=== PATIENT | female | born 2000 | race Hispanic/Latino ===

== ENCOUNTER 2023-01-14 14:03 | Emergency (ER) | payer MEDICAID ==
[~2023-01-14] VITALS: Ht 154.9 cm; Wt 54.4 kg
[2023-01-14 14:43] LABS: BASOPHILS # (AUTO) 0.08 K/uL (0.00-0.20); BASOPHILS % (AUTO) 0.6 % (0.0-5.0); EOSINOPHILS # (AUTO) 0.21 K/uL (0.00-0.70); EOSINOPHILS % (AUTO) 1.5 % (0.0-8.0); HEMATOCRIT 40.1 % (36-48); IMMATURE GRANULOCYTE ABSOLUTE 0.08 K/uL (0-1); LYMPHOCYTES # (AUTO) 2.7 K/uL (1.0-4.8); LYMPHOCYTES % (AUTO) 19.9 % (21.0-51.0); MEAN CORPUSCULAR HEMOGLOBIN 29.7 pg (27.0-33.0); MEAN CORPUSCULAR HGB CONC 32.9 g/dL (32.0-36.0); MEAN CORPUSCULAR VOLUME 90.1 fL (80-100); MONOCYTES # (AUTO) 1.1 K/uL (0.1-1.0); MONOCYTES % (AUTO) 7.8 % (3.0-13.0); NEUTROPHILS # (AUTO) 9.6 K/uL (1.8-7.7); NEUTROPHILS % (AUTO) 69.6 % (40.0-77.0); PLATELET COUNT (AUTO) 466 K/uL (130-400); RED BLOOD CELL COUNT(AUTO) 4.45 MIL/uL (4.00-5.50); RED CELL DISTRIBUTION WIDTH 11.9 % (11.0-15.5); WHITE BLOOD COUNT (AUTO) 13.8 K/uL (4.8-10.8)
[2023-01-14 14:55] LABS: CREATININE 0.8 mg/dL (0.5-1.5); POTASSIUM 3.2 mmol/L (3.5-5.1)
[2023-01-14 15:00] LABS: ALBUMIN 3.5 g/dL (3.5-5.0); BILIRUBIN,TOTAL 0.3 mg/dL (0.2-1.0); TOTAL PROTEIN, SERUM 7.3 g/dL (6.0-8.3)
[2023-01-14] MEDS ORDERED: 0.9%NACL 1000ML 1,000 ML IV ONE (15:00)
[2023-01-14] MEDS ORDERED: ONDANSETRON 4MG INJ IVP ONE (15:00)
[2023-01-14] MEDS ORDERED: MORPHINE 4 MG SYG IVP ONE (15:00)
[2023-01-14] MEDS ORDERED: MORPHINE 2 MG SYG IVP ONE (17:30)
[2023-01-14 19:57] VITALS: BP 119/62; PULSE 68; RESP 16; O2SAT 98
== END 2023-01-14 19:58 | disposition home or self-care (01) ==
LOC: EDH 14:03
DX: O03.9 Complete or unspecified spontaneous abortion without complication (principal)
CPT/HCPCS: 99285; 96374; 96361; 76801; 96375; 80053; 84703; 84702; 85025; 86850; 86900; 86901; 36415; 96376; J2270 ×2; J7030 ×2; J2405

== ENCOUNTER 2023-07-29 19:41 | Inpatient (IN) | payer MEDICAID, OTHER ==
[~2023-07-29] VITALS: Ht 154.9 cm; Wt 59.9 kg
[2023-07-29] MEDS ORDERED: IOHEXOL-350 75 ML VIAL IV ONE (23:36)
[2023-07-29 23:49] LABS: BASOPHILS # (AUTO) 0.06 K/uL (0.00-0.20); BASOPHILS % (AUTO) 0.3 % (0.0-5.0); HEMATOCRIT 40.3 % (36-48); IMMATURE GRANULOCYTE ABSOLUTE 0.06 K/uL (0-1); LYMPHOCYTES % (AUTO) 4.9 % (21.0-51.0); MEAN CORPUSCULAR HEMOGLOBIN 29.6 pg (27.0-33.0); MEAN CORPUSCULAR HGB CONC 33.7 g/dL (32.0-36.0); MEAN CORPUSCULAR VOLUME 87.8 fL (80-100); MONOCYTES # (AUTO) 1.3 K/uL (0.1-1.0); MONOCYTES % (AUTO) 6.5 % (3.0-13.0); NEUTROPHILS # (AUTO) 17.6 K/uL (1.8-7.7); PLATELET COUNT (AUTO) 387 K/uL (130-400); RED BLOOD CELL COUNT(AUTO) 4.59 MIL/uL (4.00-5.50); RED CELL DISTRIBUTION WIDTH 12.4 % (11.0-15.5)
[2023-07-29 23:58] LABS: CREATININE 0.7 mg/dL (0.5-1.5)
[2023-07-30] VITALS (28 sets, daily range): BP systolic 95–114; BP diastolic 51–72; PULSE 75–103; RESP 13–18; TEMP 99.1; O2SAT 97–100
[2023-07-30 00:02] LABS: ALBUMIN 4.2 g/dL (3.5-5.0); BILIRUBIN,TOTAL 0.6 mg/dL (0.2-1.0); TOTAL PROTEIN, SERUM 8.4 g/dL (6.0-8.3)
[2023-07-30 00:17] LABS: WBC MORPHOLOGY CONSISTENT W/DIFF
[2023-07-30] MEDS: 0.9%NACL 1000ML 1,000 ML IV ONE (00:19)
[2023-07-30] MEDS: ONDANSETRON 4MG INJ IVP ONE (00:20)
[2023-07-30 00:21] LABS: HCG,QUALITATIVE URINE NEGATIVE (NEGATIVE)
[2023-07-30] MEDS: PANTOPRAZOLE 40 MG/VIAL IVP ONE (00:21)
[2023-07-30 00:22] LABS: APPEARANCE,URINE CLEAR (CLEAR); BILIRUBIN,URINE NEGATIVE (NEGATIVE); COLOR,URINE LIGHT-YELLOW (YELLOW); GLUCOSE, URINE (UA) NEGATIVE (NEGATIVE); KETONES,URINE >=80 mg/dL (NEGATIVE); LEUKOCYTE ESTERASE ,URINE NEGATIVE Leu/uL (NEGATIVE); NITRATE,URINE NEGATIVE (NEGATIVE); PH,URINE 5.5 (5.0-8.0); PROTEIN,URINE 10 mg/dL (NEGATIVE); UROBILINOGEN,URINE 0.2 mg/dL (0.2-1.0)
[2023-07-30] MEDS: KETOROLAC 15MG/ML VIAL (15MG/ML) IV ONE (00:22)
[2023-07-30 00:24] LABS: ADD UA MICROSCOPIC YES
[2023-07-30 00:25] LABS: MUCUS,URINE RARE LPF (None Seen); SQUAMOUS EPITHELIAL CELL,UR RARE /HPF (0-2)
[2023-07-30] MEDS ORDERED: IOHEXOL-350 75 ML VIAL IV ONE (00:29)
[2023-07-30] MEDS: ZOSYN 3.375GM +NS 50ML IV ONE (01:02)
[2023-07-30 01:29] LABS: SARS-CoV-2, RNA, NAAT NEGATIVE SARS CoV-2 (NEGATIVE)
[2023-07-30 01:32] LABS: INFLUENZA TYPE A Negative For Type A (NEGATIVE); INFLUENZA TYPE B Negative For Type B (NEGATIVE)
[2023-07-30] MEDS: MORPHINE 4 MG SYG IVP ONE (02:29)
[2023-07-30] MEDS: ACETAMINOPHEN 325 MG TAB PO ONE (02:45)
[2023-07-30] MEDS ORDERED: ONDANSETRON 4MG INJ IV PRN (03:00)
[2023-07-30] MEDS: 0.9%NACL 1000ML 1,000 ML IV SCH (03:00)
[2023-07-30] MEDS ORDERED: ZOSYN 3.375GM+NS 50ML 50 ML IV SCH (05:00)
[2023-07-30 05:15] LABS: BASOPHILS # (AUTO) 0.03 K/uL (0.00-0.20); BASOPHILS % (AUTO) 0.2 % (0.0-5.0); EOSINOPHILS # (AUTO) 0.03 K/uL (0.00-0.70); EOSINOPHILS % (AUTO) 0.2 % (0.0-8.0); HEMATOCRIT 34.8 % (36-48); IMMATURE GRANULOCYTE ABSOLUTE 0.07 K/uL (0-1); LYMPHOCYTES # (AUTO) 1.4 K/uL (1.0-4.8); LYMPHOCYTES % (AUTO) 9.8 % (21.0-51.0); MEAN CORPUSCULAR HEMOGLOBIN 29.8 pg (27.0-33.0); MEAN CORPUSCULAR HGB CONC 33.6 g/dL (32.0-36.0); MEAN CORPUSCULAR VOLUME 88.5 fL (80-100); MONOCYTES # (AUTO) 0.9 K/uL (0.1-1.0); MONOCYTES % (AUTO) 6.2 % (3.0-13.0); NEUTROPHILS # (AUTO) 11.8 K/uL (1.8-7.7); NEUTROPHILS % (AUTO) 83.1 % (40.0-77.0); PLATELET COUNT (AUTO) 318 K/uL (130-400); RED BLOOD CELL COUNT(AUTO) 3.93 MIL/uL (4.00-5.50); RED CELL DISTRIBUTION WIDTH 12.3 % (11.0-15.5); WHITE BLOOD COUNT (AUTO) 14.2 K/uL (4.8-10.8)
[2023-07-30 05:39] LABS: INR 0.99 (0.85-1.15); PROTHROMBIN TIME 11.5 SEC (9.6-11.6)
[2023-07-30 05:40] LABS: PARTIAL THROMBOPLASTIN TIME 29.1 SEC (26.3-35.5)
[2023-07-30 05:51] LABS: ALBUMIN 3.1 g/dL (3.5-5.0); BILIRUBIN,TOTAL 0.9 mg/dL (0.2-1.0); CREATININE 0.6 mg/dL (0.5-1.5); MAGNESIUM 1.5 mg/dL (1.80-2.40); POTASSIUM 3.7 mmol/L (3.5-5.1); TOTAL PROTEIN, SERUM 5.9 g/dL (6.0-8.3)
[2023-07-30] MEDS: MAGNESIUM 2GM PREMIX 50ML 50 ML IV PRN (06:26)
[2023-07-30] MEDS ORDERED: POTASSIUM CHLORIDE 20MEQ/100ML 100 ML IV PRN (06:30)
[2023-07-30] MEDS: FAMOTIDINE 20MG VIAL IV SCH (08:53)
[2023-07-30] MEDS: ZOSYN 3.375GM+NS 50ML 50 ML IV SCH (08:53)
[2023-07-30] MEDS ORDERED: LIDOCAINE PF 100MG/5ML (2%) SYRINGE 5ML ONE (12:46)
[2023-07-30] MEDS ORDERED: LIDOCAINE HCL 4% LTA SOL 4 ML VIAL ONE (12:46)
[2023-07-30] MEDS ORDERED: ROCURONIUM BROMIDE 10MG/1ML 5ML VL ONE (12:49)
[2023-07-30] MEDS ORDERED: SUCCINYLCHOLINE CHLORIDE 20 MG/ML 10 ML VIAL ONE (12:49)
[2023-07-30] MEDS ORDERED: PROPOFOL 10 MG/ML 20ML VIAL IV ONE (12:49)
[2023-07-30] MEDS ORDERED: FENTANYL CITRATE PF 50 MCG/1 ML 2ML VIAL ONE (12:49)
[2023-07-30] MEDS ORDERED: MIDAZOLAM HCL 1 MG/ML 2ML VIAL ONE (12:51)
[2023-07-30] MEDS ORDERED: ONDANSETRON 4MG INJ ONE (13:39)
[2023-07-30] MEDS ORDERED: PHENYLEPHRINE HCL 10 MG/ML 1ML VIAL IV ONE (13:41)
[2023-07-30] MEDS ORDERED: 0.9%NACL 10ML VIAL ONE (13:41)
[2023-07-30] MEDS ORDERED: KETOROLAC 30MG VIAL (30MG/ML) ONE (14:05)
[2023-07-30] MEDS ORDERED: NEOSTIGMINE METHYLSULFATE 1MG/ML IV ONE (14:05)
[2023-07-30] MEDS ORDERED: GLYCOPYRROLATE 0.2 MG/ML 5 ML VIAL ONE (14:05)
[2023-07-30] MEDS: BUPIVACAINE/PF 0.5% 30ML VIAL ONE (14:10)
[2023-07-30] MEDS ORDERED: MORPHINE 2 MG SYG IVP PRN (16:00)
[2023-07-30] MEDS: KETOROLAC 15MG/ML VIAL (15MG/ML) IV PRN (21:31)
[2023-07-31] VITALS: BP 108/72; PULSE 87; RESP 16
[2023-07-31 03:56] VITALS: BP 108/72; PULSE 87; RESP 16
[2023-07-31 04:41] LABS: BASOPHILS # (AUTO) 0.04 K/uL (0.00-0.20); BASOPHILS % (AUTO) 0.3 % (0.0-5.0); EOSINOPHILS # (AUTO) 0.02 K/uL (0.00-0.70); EOSINOPHILS % (AUTO) 0.2 % (0.0-8.0); HEMATOCRIT 32.8 % (36-48); IMMATURE GRANULOCYTE ABSOLUTE 0.05 K/uL (0-1); LYMPHOCYTES # (AUTO) 1.4 K/uL (1.0-4.8); LYMPHOCYTES % (AUTO) 11.5 % (21.0-51.0); MEAN CORPUSCULAR HEMOGLOBIN 29.3 pg (27.0-33.0); MEAN CORPUSCULAR HGB CONC 32.3 g/dL (32.0-36.0); MEAN CORPUSCULAR VOLUME 90.6 fL (80-100); MONOCYTES # (AUTO) 0.9 K/uL (0.1-1.0); MONOCYTES % (AUTO) 7.6 % (3.0-13.0); NEUTROPHILS # (AUTO) 9.4 K/uL (1.8-7.7); PLATELET COUNT (AUTO) 307 K/uL (130-400); RED BLOOD CELL COUNT(AUTO) 3.62 MIL/uL (4.00-5.50); RED CELL DISTRIBUTION WIDTH 12.4 % (11.0-15.5); WHITE BLOOD COUNT (AUTO) 11.8 K/uL (4.8-10.8)
[2023-07-31 04:56] LABS: ALBUMIN 2.6 g/dL (3.5-5.0); BILIRUBIN,TOTAL 0.5 mg/dL (0.2-1.0); CREATININE 0.6 mg/dL (0.5-1.5); MAGNESIUM 1.8 mg/dL (1.80-2.40); POTASSIUM 3.9 mmol/L (3.5-5.1); TOTAL PROTEIN, SERUM 5.8 g/dL (6.0-8.3)
[2023-07-31 08:00] VITALS: BP 103/52; PULSE 85; RESP 16; O2SAT 99
[2023-07-31 12:00] VITALS: BP 98/51; PULSE 82; RESP 16
== END 2023-07-31 13:40 | disposition home or self-care (01) | DRG 397 ==
LOC: EDH 19:41 → EDHIP 19:42 → 4BH 07-30 04:19
PROVIDERS: ADMIT Hospitalist; ATTEND Hospitalist
PROC: 0DTJ4ZZ Resection of Appendix, Percutaneous Endoscopic Approach (ICD-10-PCS; principal; 2023-07-30 13:17)
DX: K35.80 Unspecified acute appendicitis (principal); E43 Unspecified severe protein-calorie malnutrition; Z20.822 Contact with and (suspected) exposure to COVID-19; E83.42 Hypomagnesemia; Z68.25 Body mass index [BMI] 25.0-25.9, adult
CPT/HCPCS: 36415; 74177; 80053; 81001; 81025; 83690; 83735; 84145; 85025; 85610; 85730; 87040; 87088; 87635; 87804; C9113; G0378; J0330; J1885; J2001; J2250; J2270; J2371; J2405; J2543; J2704; J2710; J3010; J3475; J3490; J7030; Q9967; J0665